=== PATIENT | male | born 2000 | race Caucasian/White ===

== ENCOUNTER → 2024-07-07 | Day surgery (SDC) | payer BC ==
[~2024-07-07] VITALS: Ht 165.1 cm; Wt 72.6 kg
[~2024-07-07] MED LIST: BUPIVACAINE HCL/PF 0.5% (5MG/ML) 10ML ONE; HYDROCODONE/ACETAMINOPHEN 5/325MG TABLET PO PRN; HYDROMORPHONE HCL/PF 1MG/ML INJ IV PRN; LABETALOL 5MG/ML 4ML INJ IV PRN; LIDOCAINE HCL/EPINEPHRINE 1%-EPI 1:100,000 20ML VIAL ONE; MEPERIDINE HCL/PF 25MG/ML CPJ IV PRN; MORPHINE SULFATE 2 MG/ML INJ (NOT FOR IM USE) IV PRN; MORPHINE SULFATE 4 MG/ML INJ (FOR IV/IM USE) IV PRN; NALOXONE HCL 0.4MG/ML VIAL IV PRN; ONDANSETRON HCL 4MG/2ML INJ IV PRN; OXYC-100 MT; POLYMYXIN B SULFATE 500000 UNITS/VIAL ONE; ROPIVACAINE HCL 1% 20 ML VIAL EPI ONE; SKIN ADHESIVE 0.7 GM EA TOP ONE; SODIUM CHLORIDE 0.9% 3ML FLUSH IVF SCH; SUGAMMADEX SODIUM 200MG/2ML VIAL IV ONE; SULF1TAB48 MT; VANCOMYCIN HCL 1GM VIAL ONE
[2024-07-07 10:06] LABS: BASOPHILS % 0.7 % (0.0-2.0); EOSINOPHILS % 0.8 % (0.0-5.0); HEMATOCRIT. 43.5 % (42.0-52.0); LYMPHOCYTES % 29.3 % (20.0-50.0); MEAN CORPUSCULAR HEMOGLOBIN 31.6 pg (28.0-32.0); MEAN CORPUSCULAR HGB CONC 34.4 g/dL (31.0-37.0); MEAN PLATELET VOLUME 7.6 fl (7.4-10.4); MONOCYTES % 7.6 % (2.0-8.0); NEUTROPHILS % 61.6 % (40.0-76.0); PLATELET 342 x1000/uL (130-400); RED BLOOD CELL COUNT 4.73 mill/uL (4.7-6.1); RED CELL DISTRIBUTION WIDTH 13.3 % (11.6-14.6); WHITE BLOOD COUNT 6.3 x1000/uL (4.5-11.0)
[2024-07-07 10:11] LABS: CHLORIDE 104 mEq/L (98-107); POTASSIUM 3.7 mEq/L (3.5-5.1); SODIUM 142 mEq/L (136-145)
[2024-07-07 10:12] LABS: CARBON DIOXIDE 27 mEq/L (21-32)
[2024-07-07 10:17] LABS: CREATININE 0.9 mg/dL (0.6-1.3); GLUCOSE 111 mg/dL (70-105); UREA NITROGEN BLOOD 11 mg/dL (9-23)
[2024-07-07 10:21] LABS: PARTIAL THROMBOPLASTIN TIME 31.3 sec (23.4-31.0); PROTHROMBIN TIME 11.1 sec (9.6-11.0)
[2024-07-07] MEDS: LACTATED RINGERS 1,000 ML IV SCH (10:21)
== END | disposition home or self-care (01) ==
LOC: OR 09:36
DX: S42.001A Fracture of unspecified part of right clavicle, initial encounter for closed fracture (principal); M81.0 Age-related osteoporosis without current pathological fracture; Z79.899 Other long term (current) drug therapy; X58.XXXA Exposure to other specified factors, initial encounter; Y93.89 Activity, other specified; Y92.89 Other specified places as the place of occurrence of the external cause; Y99.8 Other external cause status
CPT/HCPCS: 23515; 80048; 85025; 85610; 85730; 36415; 71045; 73000; 64415; 93005; J0665; J2004; J3490; J2795; J3370; 76000; C1713

== ENCOUNTER → 2024-07-24 | Outpatient (CLI) | payer BC ==
[~2024-07-24] MED LIST changes: -BUPIVACAINE HCL/PF 0.5% (5MG/ML) 10ML ONE; -HYDROCODONE/ACETAMINOPHEN 5/325MG TABLET PO PRN; -HYDROMORPHONE HCL/PF 1MG/ML INJ IV PRN; -LABETALOL 5MG/ML 4ML INJ IV PRN; -LIDOCAINE HCL/EPINEPHRINE 1%-EPI 1:100,000 20ML VIAL ONE; -MEPERIDINE HCL/PF 25MG/ML CPJ IV PRN; -MORPHINE SULFATE 2 MG/ML INJ (NOT FOR IM USE) IV PRN; -MORPHINE SULFATE 4 MG/ML INJ (FOR IV/IM USE) IV PRN; -NALOXONE HCL 0.4MG/ML VIAL IV PRN; -ONDANSETRON HCL 4MG/2ML INJ IV PRN; -POLYMYXIN B SULFATE 500000 UNITS/VIAL ONE; -ROPIVACAINE HCL 1% 20 ML VIAL EPI ONE; -SKIN ADHESIVE 0.7 GM EA TOP ONE; -SODIUM CHLORIDE 0.9% 3ML FLUSH IVF SCH; -SUGAMMADEX SODIUM 200MG/2ML VIAL IV ONE; -VANCOMYCIN HCL 1GM VIAL ONE
== END | disposition home or self-care (01) ==
LOC: RAD 11:58
DX: S42.021D Displaced fracture of shaft of right clavicle, subsequent encounter for fracture with routine healing (principal); X58.XXXD Exposure to other specified factors, subsequent encounter
CPT/HCPCS: 73000